=== PATIENT | male | born 1980 | race Caucasian/White ===

== ENCOUNTER 2017-03-20 12:38 | Emergency (ER) | payer OTHER ==
[~2017-03-20] VITALS: Ht 172.7 cm; Wt 65.8 kg
[2017-03-20] MEDS ORDERED: DEPAKOTE125 MG PO (12:55)
--- NOTE | 2017-03-20 13:03 | Emergency Room Report ---
History of Present Illness General Chief Complaint: Pain Source: Patient Present Illness HPI 36 YO male presents to the ED c/o right groin and testicular pain 8/10 in severity, constant in nature since this a.m, Patient denies swelling, erythema, penile lesions, dysuria, hematuria, or penile discharge. denies testicular symptoms in the past pt. reports hx of BPH in his family and urologist recently told him his prostate is mildly enlarged. denies fevers, chills, nausea, vomiting or abdominal pain. denies trauma. pt. denies hx of hernias he reports he does work out regularly. Denies joint pain, hx of STI, dysuria, hematuria, constipation or diarrhea. Allergies: Coded Allergies: PENICILLINS (Verified Allergy, Unknown, 03/20/17) Patient History Past Medical History: see triage record Past Surgical History: none Pertinent Family History: none Reviewed Nursing Documentation: PMH: Agreed, PSxH: Agreed Nursing Documentation-PMH Past Medical History: No History, Except For Review of Systems All Other Systems: negative except mentioned in HPI Physical Exam Vital Signs Date Time Temp Pulse Resp B/P (MAP) Pulse Ox O2 Delivery O2 Flow Rate FiO2 03/20/17 12:52 97.3 68 18 139/94 97 Room Air Sp02 EP Interpretation: reviewed, normal General Appearance: no apparent distress, alert, GCS 15, non-toxic Head: normocephalic, atraumatic Eyes: bilateral eye normal inspection, bilateral eye PERRL ENT: hearing grossly normal, normal voice Neck: full range of motion Respiratory: lungs clear, normal breath sounds, speaking full sentences Cardiovascular #1: regular rate, rhythm Gastrointestinal: normal bowel sounds, non tender, soft, no guarding, no rebound Rectal: deferred Genitourinary: normal inspection, no CVA tenderness, penis normal, other - negative phren's sign, cremasteric reflex is intact, no lesions, right scrotal tenderness, mild swelling noted, no erythema, no LAD, no palpated hernia. Musculoskeletal: back normal, gait/station normal, normal range of motion, non- tender, no calf tenderness Neurologic: alert, oriented x3, responsive, motor strength/tone normal, sensory intact, normal gait, speech normal Reflexes: 4+ bicep (R), 4+ bicep (L), 4+ tricep (R), 4+ tricep (L), 4+ knee (R) , 4+ knee (L) Skin: normal color, no rash, warm/dry, well hydrated Lymphatic: no adenopathy Medical Decision Making PA Attestation Dr. Camargo is my supervising Physician whom patient management has been discussed with. Diagnostic Impression: Primary Impression: Testicular pain, right Additional Impression: Varicocele present on ultrasound of scrotum ER Course 36 YO male presents to the ED c/o right groin and testicular pain 8/10 in severity, constant in nature since this a.m, Patient denies swelling, erythema, penile lesions, dysuria, hematuria, or penile discharge. denies testicular symptoms in the past pt. reports hx of BPH in his family and urologist recently told him his prostate is mildly enlarged. denies fevers, chills, nausea, vomiting or abdominal pain. denies trauma. pt. denies hx of hernias he reports he does work out regularly. Denies joint pain, hx of STI, dysuria, hematuria, constipation or diarrhea. Ddx considered but are not limited to testicular torsion, epididymitis, orchitis , abscess, acute appy, hernia just to name a few Vital signs: are WNL, pt. is afebrile H&PE are most consistent with testicular pathology will r/o emergent conditions such as torsion and do UA. I do not suspect appendicitis due to location of pain primarily in the scrotal area, no RLQ ttp. ORDERS: - Testicular ultrasound: positive for varicocele, no torsion, good flow bilaterally, no hernia- Per official radiology report- Please see report for specific details. - UA: unremarkable no inflammatory markers, no RBC's or occult blood. ED INTERVENTIONS: - [place] PO -Toradol Im DISCHARGE: At this time pt. is stable for d/c to home. Will provide printed patient care instructions, and any necessary prescriptions. Care plan and follow up instructions have been discussed with the patient prior to discharge. Labs Test 03/20/17 13:36 Urine Color Pale yellow Urine Appearance Clear Urine pH 7 (4.5-8.0) Urine Specific [place] 1.005 (1.005-1.035) Urine Protein Negative (NEGATIVE) Urine Glucose (UA) Negative (NEGATIVE) Urine Ketones Negative (NEGATIVE) Urine Occult Blood Negative (NEGATIVE) Urine Nitrite Negative (NEGATIVE) Urine Bilirubin Negative (NEGATIVE) Urine Urobilinogen Normal MG/DL (0.0-1.0) Urine Leukocyte Esterase Negative (NEGATIVE) Last Vital Signs Date Time Temp Pulse Resp B/P (MAP) Pulse Ox O2 Delivery O2 Flow Rate FiO2 03/20/17 12:52 97.3 68 18 139/94 97 Room Air Disposition: HOME, SELF-CARE Condition: Stable Scripts Ibuprofen* (MOTRIN*) 600 Mg Tablet 600 MG ORAL THREE TIMES A DAY, #30 TAB 0 Refills Prov: Mariposa Harper 03/20/17 Patient Instructions: Varicocele Additional Instructions: Take medications as directed. Follow up with a Primary Care Provider in 3-5 days, even if your symptoms have resolved. --Please review list of primary care clinics, if you do not already have a primary care provider Return sooner to ED if new symptoms occur, or current symptoms become worse. - Please note that this Emergency Department Report was dictated using [employer] associate technology software, occasionally this can lead to erroneous entry secondary to interpretation by the dictation equipment. Mariposa Harper Mar 20, 2017 13:03
[2017-03-20] MEDS ORDERED: Norco 5mg/325mg tab ORAL ONE ×2 (13:45→16:45)
[2017-03-20 14:21] VITALS: BP 139/94
[2017-03-20 14:35] LABS: APPEARANCE,URINE CLEAR; KETONES,URINE NEGATIVE (NEGATIVE); LEUKOCYTE ESTERASE ,URINE NEGATIVE (NEGATIVE); NITRITE,URINE NEGATIVE (NEGATIVE); PH,URINE 7 (4.5-8.0); PROTEIN,URINE NEGATIVE (NEGATIVE); UROBILINOGEN,URINE NORMAL MG/DL (0.0-1.0)
--- NOTE | 2017-03-20 16:42 | Diagnostic Imaging Report ---
Indications: Right testicular and groin pain Technique: Grayscale and duplex images of the scrotum Comparison:None Findings:The right testicle measures 4.4cm in length. It demonstrates normal echogenicity. Normal Doppler flow. Normal epididymis. There is a small right varicocele. A few calcifications are noted within the testicle The left testicle measures 4.7 cm in length. It demonstrates normal echogenicity and normal Doppler flow. Normal epididymis. 2 calcifications are seen within the left testicle Examination of both inguinal canals demonstrates no evidence of inguinal hernia. Impression: Negative for evidence of testicular torsion, acute epididymitis, or other acute scrotal pathology Small right varicocele No evidence of inguinal hernia Incidental finding of scattered bilateral testicular calcifications
[2017-03-20] MEDS ORDERED: Ketorolac 60mg Inj IM ONE (16:45)
[2017-03-20] MEDS ORDERED: IBUPROFEN600 MG ORAL (16:52)
[2017-03-20 17:01] VITALS: BP 132/88
[2017-03-20 17:02] VITALS: BP 132/88
== END 2017-03-20 17:04 | disposition home or self-care (01) ==
LOC: EMR 13:29
DX: N50.811 Right testicular pain (principal); I86.1 Scrotal varices; Z88.0 Allergy status to penicillin
CPT/HCPCS: 76870; 81003; 96372; 99284